=== PATIENT | male | born 1960 | race Caucasian/White ===

== ENCOUNTER 2018-06-19 10:35 | Emergency (ER) | payer OTHER ==
[2018-06-19 11:48] VITALS: BP 167/100
--- NOTE | 2018-06-19 12:25 | UC ---
Ear Complaint HPI - HPI Summary HPI Summary: Pt presents with c/o bilateral ear "fullness" X 1 month. Pt states that he has "issues with wax" has been using OTC ear wax remover with no improvement. - History of Current Complaint Chief Complaint: UCEar Stated Complaint: BILATERAL EARS Time Seen by Provider: 06/19/18 12:15 Hx Obtained From: Patient Onset/Duration: Gradual Onset, Lasting Weeks, Still Present, Worse Since - onset Severity Initially: Moderate Severity Currently: Moderate Pain Intensity: 0 Alleviating Factors: Nothing Associated Signs/Symptoms: Positive: Hearing Loss - Allergies/Home Medications Allergies/Adverse Reactions: Allergies Allergy/AdvReac Type Severity Reaction Status Date / Time No Known Allergies Allergy Verified 06/19/18 11:41 Home Medications: Home Medications Quinapril HCl 40 mg PO DAILY 06/19/18 [History Confirmed 06/19/18] PMH/Surg Hx/FS Hx/Imm Hx Previously Healthy: Yes - Surgical History Surgical History: Yes Surgery Procedure, Year, and Place: 2008 RIGHT Knee meniscus repair. 2017- Right shoulder rotator cuff repair - Family History Known Family History: Positive: Cardiac Disease - Social History Occupation: Employed Full-time Lives: With Family Alcohol Use: Daily Alcohol Amount: 1 drink q daily Substance Use Type: None Smoking Status (MU): Former Smoker Have You Smoked in the Last Year: No Review of Systems Constitutional: Negative Skin: Negative Eyes: Negative ENT: Other - hearing loss, ear fullness Respiratory: Negative Cardiovascular: Negative Gastrointestinal: Negative Genitourinary: Negative Motor: Negative Neurovascular: Negative Musculoskeletal: Negative Neurological: Negative Psychological: Negative Is Patient Immunocompromised?: No All Other Systems Reviewed And Are Negative: Yes Physical Exam Triage Information Reviewed: Yes Appearance: Well-Appearing Vital Signs: Initial Vital Signs Temp 97.0 F 06/19/18 11:43 Pulse 61 06/19/18 11:43 Resp 16 06/19/18 11:43 BP 167/100 06/19/18 11:43 Pulse Ox 98 06/19/18 11:43 Vital Signs Reviewed: Yes Eye Exam: Normal ENT Exam: Other ENT: Positive: Other - cerumen bilateral ears Dental Exam: Normal Neck exam: Normal Respiratory Exam: Normal Cardiovascular Exam: Normal Musculoskeletal Exam: Normal Neurological Exam: Normal Psychological Exam: Normal Skin Exam: Normal Ear Complaint Course/Dx - Course Course Of Treatment: bilateral ear irrigation done with removal of cerumen bilateral ear canals. - Differential Dx/Diagnosis Differential Diagnosis/HQI/PQRI: Cerumen Impaction Provider Diagnoses: bilateral ear cerumen impaction Discharge - Sign-Out/Discharge Documenting (check all that apply): Patient Departure All imaging exams completed and their final reports reviewed: No - Discharge Plan Condition: Stable Disposition: HOME Patient Education Materials: Cerumen Impaction (ED) Referrals: Jony Chau MD [Primary Care Provider] - If Needed - Billing Disposition and Condition Condition: STABLE Disposition: Home
--- NOTE | 2018-06-20 08:54 | UC ---
Discharge - Sign-Out/Discharge Documenting (check all that apply): Post-Discharge Follow Up All imaging exams completed and their final reports reviewed: No Studies - Discharge Plan Condition: Stable Disposition: HOME Patient Education Materials: Evelina Santana (ED) Referrals: Jony Chau MD [Primary Care Provider] - If Needed - Billing Disposition and Condition Condition: STABLE Disposition: Home
== END 2018-06-19 13:07 | disposition home or self-care (01) ==
LOC: UCCORT 10:35
DX: Z87.891 Personal history of nicotine dependence (principal); H61.23 Impacted cerumen, bilateral
CPT/HCPCS: 69210; 99211; G0463

== ENCOUNTER 2024-11-01 07:10 | Observation (INO) ==
[2024-11-01 07:45] LABS: ABS Basophils 0.1 10^3/uL (0.0-0.1); ABS Eosinophils 0.3 10^3/uL (0.0-0.5); ABS Lymphocytes 1.2 10^3/uL (1.0-4.8); ABS Monocytes 0.4 10^3/uL (0.0-1.1); ABS Nucleated RBC 0.01 10^3/ul; Eosinophil % 3.6 %; Hematocrit 40.3 % (38-53); Hemoglobin 13.4 g/dL (13.2-16.3); Lymphocyte % 17.8 %; Mean Corpuscular Hemoglobin 29.2 pg (27-33); Mean Corpuscular Hgb Conc 33.3 g/dL (31-36); Mean Corpuscular Volume 87.7 fL (80-97); Mean Platelet Volume 8.1 fL (7.5-11.2); Nucleated Red Blood Cells % 0.1 %/100WBC (0.0-0.8); Platelet Count 330 10^3/uL (150-450); Red Blood Count 4.59 10^6/uL (4.06-5.63); Red Cell Distribution Width 13.9 % (12-17)
[2024-11-01 08:03] LABS: Albumin 4.4 g/dL (3.5-5.7); Albumin/Globulin Ratio 1.8 (1-3); Calcium 10.9 mg/dL (8.6-10.3); Creatinine, Serum 1.47 mg/dL (0.67-1.17); Globulin 2.5 g/dL (2-4); Potassium 4.3 mmol/L (3.5-5.0); Total Bilirubin 0.4 mg/dL (0.2-1.0); Total Protein 6.9 g/dL (6.4-8.9); eGFR CKD-EPI 53.3 (>60)
[2024-11-01 08:11] LABS: INR 1.04 (0.85-1.14)
[2024-11-01 09:08] LABS: High Sensitivity Troponin 1 Hr 29 pg/mL (<20)
[2024-11-01] MEDS ORDERED: Iohexol 350 (CONTRAST) 500 ML MDV IV ONE (11:01)
[2024-11-01 11:27] LABS: High Sensitivity Troponin 3 Hr 359 pg/mL (<20)
[2024-11-01] MEDS: Iodixanol 320 (CONTRAST) 100 ML SDV IV ONE (11:48)
[2024-11-01] MEDS ORDERED: Al Hydrox/Mg Hydrox/Simet LIQ 30 ML UDC PO PRN (12:50)
[2024-11-01] MEDS: Heparin 5000 UNITS/ML 1 mL VIAL IV SCH (13:42)
[2024-11-01] MEDS: Heparin DRIP 25,000 UNITS BAG 25,000 UNITS/250 ML BAG IV SCH (13:43)
[2024-11-01] MEDS: Sulfur Hexaflouride MICROSPHR 25 MG VIAL IV PRN (14:48)
[2024-11-01] MEDS ORDERED: Dextrose 50% Syringe 50 ml 25 GM/50 ML SYRINGE IV PUSH PRN (14:57)
[2024-11-01] MEDS ORDERED: Sulfur Hexaflouride MICROSPHR 25 MG VIAL IV PRN (15:26)
[2024-11-01 16:00] LABS: HDL Cholesterol 39.8 mg/dL
[2024-11-02 06:12] LABS: Hematocrit 37.7 % (38-53); Hemoglobin 12.6 g/dL (13.2-16.3); Mean Corpuscular Hemoglobin 29.3 pg (27-33); Mean Corpuscular Hgb Conc 33.3 g/dL (31-36); Mean Corpuscular Volume 87.9 fL (80-97); Mean Platelet Volume 8.3 fL (7.5-11.2); Platelet Count 293 10^3/uL (150-450); Red Blood Count 4.29 10^6/uL (4.06-5.63); Red Cell Distribution Width 13.4 % (12-17); White Blood Count 6.9 10^3/uL (3.6-10.2)
[2024-11-02 06:39] LABS: Creatinine, Serum 1.23 mg/dL (0.67-1.17); Magnesium 1.8 mg/dL (1.9-2.7); Potassium 4.3 mmol/L (3.5-5.0)
[2024-11-02] MEDS ORDERED: DOBUTamine 2000 MCG/ML IVPREMX 500 MG/250 ML BAG IV ONE (07:30)
[2024-11-02] MEDS ORDERED: Atropine 0.1 MG/ML 10 ml SYR (1 mg) ONE (07:30)
[2024-11-02] MEDS ORDERED: Sulfur Hexaflouride MICROSPHR 25 MG VIAL ONE ×2 (07:30→08:33)
[2024-11-02] MEDS ORDERED: Metoprolol Tartrate 5 mg VIAL 5 ml VIAL (1 mg/ml) ONE (07:30)
[2024-11-02 07:49] LABS: ABS Basophils 0.1 10^3/uL (0.0-0.1); ABS Eosinophils 0.3 10^3/uL (0.0-0.5); ABS Lymphocytes 1.6 10^3/uL (1.0-4.8); ABS Monocytes 0.5 10^3/uL (0.0-1.1); ABS Neutrophils 4.3 10^3/uL (1.5-7.6); Eosinophil % 4.9 %; Lymphocyte % 23.6 %; RBC Morphology Normal (Normal)
[2024-11-02] MEDS ORDERED: Lisinopril/HCTZ 20/12.5 TB(NF) PO SCH (09:00)
[2024-11-02 09:47] VITALS: BP 136/67
== END 2024-11-02 12:54 | disposition home or self-care (01) ==
LOC: ED 07:10 → EDHOLD 12:50 → INTOOBSV 12:50 → MEDTELE 15:07
PROVIDERS: ADMIT Internal Medicine; ATTEND Internal Medicine